=== PATIENT | male | born 1950 | race Caucasian/White ===

== ENCOUNTER 2018-01-27 13:00 | Inpatient (IN) | payer OTHER ==
[~2018-01-27] VITALS: Ht 165.1 cm; Wt 90.7 kg
[2018-01-27] MEDS ORDERED: VICODIN ES 7.51 EACH PO (16:35)
[2018-01-27] MEDS ORDERED: RESTORIL30 M1 PO (16:35)
[2018-01-27] MEDS ORDERED: LISINOPRIL20 MG PO (16:35)
[2018-02-12] MEDS ORDERED: GABAPENTIN800 MG PO (09:23)
[2018-02-12] MEDS ORDERED: DOCUSATE SODIU100 MG PO (09:23)
[2018-02-12] MEDS ORDERED: AMOX-CLAV 875-1 EACH PO (09:24)
[2018-02-12] MEDS ORDERED: PERCOCET 5-3251 EACH PO (09:25)
[2018-02-12] MEDS ORDERED: CLONAZEPAM1 MG PO (09:25)
[2018-02-12] MEDS ORDERED: RESTORIL30 M1 PO (12:21)
[2018-02-12] MEDS ORDERED: VICODIN ES 7.51 EACH PO (12:21)
== END 2018-02-12 13:46 | disposition home or self-care (01) | DRG 455 ==
LOC: O/R 02-11 05:45 → SURG 02-11 17:30
PROVIDERS: Orthopaedic Surgery Orthopaedic Surgery of the Spine
PROC: 0SG3071 Fusion of Lumbosacral Joint with Autologous Tissue Substitute, Posterior Approach, Posterior Column, Open Approach (ICD-10-PCS; 2018-02-11)
PROC: 0ST40ZZ Resection of Lumbosacral Disc, Open Approach (ICD-10-PCS; 2018-02-11)
PROC: 07DS3ZZ Extraction of Vertebral Bone Marrow, Percutaneous Approach (ICD-10-PCS; 2018-02-11)
PROC: 00NY0ZZ Release Lumbar Spinal Cord, Open Approach (ICD-10-PCS; 2018-02-11)
PROC: 0SG30AJ Fusion of Lumbosacral Joint with Interbody Fusion Device, Posterior Approach, Anterior Column, Open Approach (ICD-10-PCS; principal; 2018-02-11 15:45)
DX: M96.1 Postlaminectomy syndrome, not elsewhere classified (principal); M47.27 Other spondylosis with radiculopathy, lumbosacral region; M48.061 Spinal stenosis, lumbar region without neurogenic claudication